=== PATIENT | male | born 1980 | race Caucasian/White ===

== ENCOUNTER 2021-08-31 08:12 | Outpatient (REF) | payer OTHER, SELFPAY | END 2021-08-31 08:13 | disposition home or self-care (01) | LOC: HO.HOSX 08:12 | PROVIDERS: Visit Provider Physician Assistant | DX: Z13.89 Encounter for screening for other disorder (principal) ==

== ENCOUNTER 2021-10-20 13:10 | Emergency (ER) | payer OTHER, SELFPAY ==
[2021-10-20 13:50] VITALS: BP 122/74; PULSE 77; RESP 18; TEMP 36.9; O2SAT 98; BMI 25.7
--- NOTE | 2021-10-20 14:12 | ED.ANIMALBIT ---
HPI - Animal Bite General Chief Complaint: Animal Bite Stated Complaint: Bite riaz, L hand swollen Time Seen by Provider: 10/20/21 14:05 Source: patient Mode of arrival: ambulatory Limitations: no limitations History of Present Illness HPI narrative: 40 yo male presents to the ER for evaluation of an infected possible spider bite on the inside of his left wrist that he notes a few days ago. He thought that he got bit by something when he was doing gardening few days ago and the area has gotten more painful, swollen and is now draining purulent material. He reports pain when he moves his wrist but is able to do so. He denies history of diabetes. He is not febrile. MD complaint: other (possible spider bite) Onset (ago): day(s) Animal: other (Possible spider bite) Description of animal: unknown animal Mechanism: bite Location - Extremities: left: hand (Palmar aspect of the left wrist) Pain description: dull and constant Severity scale (1-10): 8 Associated symptoms: erythema and discharge from wound Treatments prior to arrival: wound dressing(s) Related Data Patient tetanus UTD: Yes Previous Rx's Medication Instructions Recorded cephalexin 500 mg tablet 500 mg PO Q6H 7 days #28 tabs 10/20/21 doxycycline hyclate 100 mg tablet 100 mg PO BID #14 tabs 10/20/21 Allergies Allergy/AdvReac Type Severity Reaction Status Date / Time No Known Allergies Allergy Unverified 11/08/19 15:34 Review of Systems Review of Systems: Constitutional: No Fever, No Chills Cardiovascular: No Chest Pain, No SOB Gastrointestinal: No Nausea, No Vomiting,No abdominal Pain Genitourinary: No Dysuria, No Urinary Frequency, No Hematuria Musculoskeletal: + joint pain, No Myalgias Skin: + Skin Lesions, No rash Neuro: No Weakness, No Numbness, No Dizziness, No Headache Psych:+ Anxiety/Panic, No Depression Heme/Lymph: No Bruising, No Lymphadenopathy Endocrine: No Polyuria, No Polydipsia PMFSH Social History Social History Advance Directives: No Advance Directives Information Provided: No Physical Exam ED Vital Signs: Vital Signs - 24 hr 10/20/21 13:50 10/20/21 14:52 Temperature 98.4 F 98.4 F Pulse Rate 77 53 Respiratory Rate 18 14 Blood Pressure 122/74 124/85 Pulse Oximetry 98 100 Oxygen Delivery Method Room Air Room Air BMI result Body Mass Index 25.7 Appearance: Alert. Oriented X3. No acute distress. HEENT: normal inspection CVS: Normal heart rate and rhythm. Pulses normal. Respiratory: No respiratory distress. Skin: Skin warm and dry. Normal skin color. Normal skin turgor. No rashes. Extremities: Palmar aspect of the left wrist with a 1 cm, tender, fluctuant lesion on the ulnar side, moderate surrounding erythema and tenderness. Normal range of motion of the wrist. 2+ radial pulse. Neurovascularly intact distally. Neuro: Oriented X 3. No motor deficit. No sensory deficit. Course Course Course Narrative: 40-year-old male presents to the ER for evaluation of a possible spider bite on his left wrist few days ago. Purulence drainage and evidence of infection at this time. He is agreeable to incision and drainage. Reevaluation(s) Reevaluation #1: Patient tolerated procedure well. Purulence, foul smelling material was able to be expressed. Wound was irrigated extensively. No need for packing. He was given 1st dose of oral antibiotics. Went to go asking which pharmacy he went to for additional antibiotic treatment and he eloped from the emergency room prior to being discharged. Procedures Abscess I/D Site: hand Side (if applicable): left Local Anesthetic: lidocaine 2% Amount of anesthesia used (mL): 1 Technique: incised with blade Sent for culture/gram staining?: No Irrigation: Yes Packing used?: none Complications: pain Discharge Plan Discharge Clinical Impression: Cutaneous abscess of left wrist Patient Disposition: Elopement Prescriptions: New doxycycline hyclate 100 mg tablet 100 mg PO BID Qty: 14 0RF cephalexin 500 mg tablet 500 mg PO Q6H 7 Days Qty: 28 0RF Discharge Date/Time: 10/20/21 15:50
[2021-10-20] MEDS: Lidocaine HCl 2 % 20 ML VIAL SUBCUT (14:32)
[2021-10-20 14:52] VITALS: BP 124/85; PULSE 53; RESP 14; TEMP 36.9; O2SAT 100
[2021-10-20] MEDS: cephALEXin 500 MG CAPSULE 1000 MG PO (14:57)
[2021-10-20] MEDS: Ibuprofen 600 MG TABLET PO (14:57)
--- NOTE | 2021-10-20 15:49 | PC.NURSE ---
Patient left before discharge papers were given
== END 2021-10-20 15:50 | disposition left against medical advice (07) ==
PROVIDERS: Emergency Provider Emergency Medicine
DX: L02.414 Cutaneous abscess of left upper limb (principal); M25.532 Pain in left wrist
CPT/HCPCS: 10060; 99283; 99284

== ENCOUNTER 2022-06-04 00:52 | Emergency (ER) | payer SELFPAY ==
[2022-06-04 01:02] VITALS: BP 129/77; PULSE 118; RESP 16; TEMP 36.6; BMI 25.0
--- NOTE | 2022-06-04 01:24 | ED.SKABFB ---
HPI - Skin/Abscess/Foreign Bdy General Chief complaint: Skin/Abscess/Foreign Body Stated complaint: L arm itchiness/scabs on left arm Time Seen by Provider: 06/04/22 01:16 Source: patient Mode of arrival: ambulatory Limitations: no limitations History of Present Illness HPI narrative: Patient with history of substance abuse use IVDA cocaine and heroin complaining of rash for last few weeks getting worse for last 3 days rash is most and forearm with scab formation no history of similar rash in the past no fever or chills Related Data Previous Rx's Medication Instructions Recorded cephalexin 500 mg tablet 500 mg PO Q6H 7 days #28 tabs 10/20/21 doxycycline hyclate 100 mg tablet 100 mg PO BID #14 tabs 10/20/21 doxycycline hyclate 100 mg tablet 100 mg PO BID #20 tabs 06/04/22 mupirocin calcium 2 % topical cream 1 appl topical BID #30 grams 06/04/22 Allergies Allergy/AdvReac Type Severity Reaction Status Date / Time No Known Allergies Allergy Unverified 11/08/19 15:34 Review of Systems Review of Systems: Yes all other systems are reviewed and are negative Physical Exam Vital Signs: Vital Signs: Last Vital Signs Temp 98 F 06/04/22 01:02 Pulse 118 H 06/04/22 01:02 Resp 16 06/04/22 01:02 BP 129/77 06/04/22 01:02 O2 Del Method Room Air 06/04/22 01:02 BMI result Body Mass Index 25.0 Skin: Other: Round circular rash with scab mostly on the left forearm likely staph infection? MRSA Medical Decision Making Medical Decision Making [facility] Narrative: Patient with IVDA with rash clinically staph infection discharge patient home on doxycycline and Bactroban ointment Discharge Plan Discharge Clinical Impression: MRSA (methicillin resistant Staphylococcus aureus) infection Patient Disposition: Home, Self-Care Instructions: MRSA (Methicillin-Resistant Staphylococcus Aureus) (ED) Additional Instructions: Apply Bactroban ointment on the active lesions Take antibiotic as prescribed Prescriptions: New doxycycline hyclate 100 mg tablet 100 mg PO BID Qty: 20 0RF mupirocin calcium 2 % cream 1 appl topical BID Qty: 30 0RF No Action doxycycline hyclate 100 mg tablet 100 mg PO BID Qty: 14 0RF cephalexin 500 mg tablet 500 mg PO Q6H 7 Days Qty: 28 0RF
[2022-06-04] MEDS: Doxycycline Monohydrate 100 MG CAPSULE PO (01:37)
== END 2022-06-04 01:41 | disposition home or self-care (01) ==
PROVIDERS: Emergency Provider Internal Medicine
DX: A49.02 Methicillin resistant Staphylococcus aureus infection, unspecified site (principal); R21 Rash and other nonspecific skin eruption
CPT/HCPCS: 99282; 99283

== ENCOUNTER 2023-02-17 14:28 | Outpatient (REF) | payer MEDICAID, SELFPAY ==
[2023-02-17 16:55] LABS: TSH reflex Free T4 > 100.00 uIU/mL (0.32-4.0)
[2023-02-17 17:35] LABS: Free T4 (Free Thyroxine) < 0.42 ng/dL (0.71-1.85)
== END 2023-02-17 14:29 | disposition home or self-care (01) ==
LOC: HO.HHCL 14:28
PROVIDERS: Visit Provider General Practice
DX: E03.8 Other specified hypothyroidism (principal)
CPT/HCPCS: 36415; 84439; 84443

== ENCOUNTER 2024-04-04 13:14 | Emergency (ER) | payer MEDICAID, SELFPAY ==
[2024-04-04] VITALS (8 sets, daily range): BP systolic 96–156; BP diastolic 53–106; PULSE 38–66; RESP 12–18; TEMP 36.4–36.7; O2SAT 94–100; BMI 28.0
--- NOTE | ~2024-04-04 | CT_ITS ---
EXAMINATION: CT CERVICAL SPINE WITHOUT IV CONTRAST HISTORY: fall. TECHNIQUE: Helical CT of the cervical spine was performed per standard departmental protocol. Coronal and sagittal reformatted images were also evaluated. One or more of the following techniques was used for dose reduction: Automated exposure control, adjustment of the mA and/or kV according to patient size, use of iterative reconstruction technique. DLP: 472.93 mGy-cm COMPARISON: There are no prior studies for comparison. FINDINGS: The examination is nondiagnostic due to marked patient motion. CT/CT cervical spine wo IV con IMPRESSION: Nondiagnostic examination due to marked patient motion. If there remains clinical concern for fracture of the cervical spine, a repeat examination could be performed after appropriate sedation. Electronically signed by: Rudy Lebron MD 04/04/2024 03:25 PM [facility]
--- NOTE | ~2024-04-04 | CT_ITS ---
EXAMINATION: CT HEAD WITHOUT IV CONTRAST HISTORY: fall. TECHNIQUE: Unenhanced helical CT of the head was performed per standard departmental protocol. Coronal and sagittal reformats of the head were also evaluated. One or more of the following techniques was used for dose reduction: Automated exposure control, adjustment of the mA and/or kV according to patient size, use of iterative reconstruction technique. DLP: 1698 mGy-cm COMPARISON: There are no prior studies for comparison. FINDINGS: BRAIN: The brain parenchyma is unremarkable. There is normal prasad/white differentiation. The ventricular system is normal in size and configuration. There is no mass effect or midline shift. No intra- or extra-axial fluid collections are identified. SINUSES: The visualized paranasal sinuses are clear. There are probable postsurgical changes involving the right mastoid air cells. ORBITS: The visualized orbits are unremarkable. BONES/SOFT TISSUES: The extracranial soft tissues are unremarkable. The calvarium is intact. No suspicious lytic or sclerotic lesions. CT/CT head/brain wo IV con IMPRESSION: No acute intracranial abnormality. Electronically signed by: Rudy Lebron MD 04/04/2024 03:23 PM [facility]
--- NOTE | ~2024-04-04 | XR_ITS ---
EXAMINATION: XR CHEST 1 VIEW HISTORY: dyspnea COMPARISON: There are no prior studies for comparison. FINDINGS: A single AP portable view of the chest performed at 2:50 PM is submitted. There are low lung volumes. The lungs are grossly clear. There is no pleural effusion, pneumothorax, or pulmonary vascular congestion. The heart is normal in size. The bones are intact. XR/XR chest 1V IMPRESSION: Low lung volumes. The lungs are grossly clear. Electronically signed by: Rudy Lebron MD 04/04/2024 03:15 PM [facility]
--- NOTE | 2024-04-04 13:26 | ECG_ITS ---
Test Reason : jacquelin Blood Pressure : */* mmHG Vent. Rate : 50 BPM Atrial Rate : 50 BPM P-R Int : 152 ms QRS Dur : 88 ms QT Int : 450 ms P-R-T Axes : 68 16 -7 degrees QTcB Int : 410 ms Sinus bradycardia Nonspecific T wave abnormality Abnormal ECG No previous ECGs available Referred By: Sara Ibanez Electronically Signed By: NOE KATZ MD
[2024-04-04 13:30] LABS: Glucose, Whole Blood 130 mg/dL (60-115)
--- NOTE | 2024-04-04 13:55 | ED.AMS ---
HPI - Altered Mental Status General Chief Complaint: Overdose Stated Complaint: heroin OD, responsive post 14mg narcan, 15LPM NRB Time Seen by Provider: 04/04/24 13:22 Source: EMS Mode of arrival: EMS Limitations: altered mental status History of Present Illness ED Provider: A[place]IN HPI narrative: 43 yo male with PMH of substance abuse who was found unresponsive on ground - bystanders called 911. He was given 12mg intranasal narcan and then 2mg IV total 14mg. EMS noted his HR was in 30s so they gave 1mg atropine en route unable to get BP. On arrival to ED he is sleepy but states he is cold and then rolls over and tries to sleep. He was hypoxic and placed on NRB. He is intermittently awake then fallins asleep. We have seen him before for abscess due to IVDA. No known downtime he has been titrated down by me to 5L oxymask holding narcan unless he worsens clinically MD complaint: altered mental status Onset (ago): unknown Timing confirmed by: other Severity: severe Context: drug abuse Associated symptoms: denies other symptoms Treatments prior to arrival: IV fluid, oxygen and other (14mg total narcan) Related Data Previous Rx's ?Medication ?Instructions ?Recorded cephalexin 500 mg tablet 500 mg PO Q6H 7 days #28 tabs 10/20/21 doxycycline hyclate 100 mg tablet 100 mg PO BID #14 tabs 10/20/21 doxycycline hyclate 100 mg tablet 100 mg PO BID #20 tabs 06/04/22 mupirocin calcium 2 % topical cream 1 appl topical BID #30 grams 06/04/22 Allergies Allergy/AdvReac Type Severity Reaction Status Date / Time No Known Allergies Allergy Verified 04/04/24 13:25 Review of Systems Review of Systems: ROS unable to be obtained due to altered mental status [facility] Past Medical History Attestation statement: The following information was validated with the patient. Source: old records reviewed Medical History Active substance abuse Social History Social History (Updated 04/04/24 @ 13:55 by Sara Ibanez DO) Patient Tobacco Use Status: Tobacco use Unknown Advance Directives: No Advance Directives Information Provided: No Do you have a plan to hurt others: No Plan Physical Exam ED Vital Signs: Vital Signs - 24 hr 04/04/24 13:20 04/04/24 15:27 04/04/24 15:28 Temperature Pulse Rate 51 66 48 L Respiratory Rate 18 15 Blood Pressure 156/106 H 121/91 H Pulse Oximetry 100 94 100 Oxygen Delivery Method Non-Rebreather Mask Room Air 04/04/24 15:46 04/04/24 17:07 Temperature 97.5 F Pulse Rate 45 L 46 L Respiratory Rate 15 14 Blood Pressure 123/84 116/77 Pulse Oximetry 97 96 Oxygen Delivery Method Room Air Room Air BMI result Body Mass Index 28.0 Appearance: Somnolent wakes to painful stimuli, says he is cold, pulls away from blood draw mild acute distress. Eyes: Pupils pinpoint ENT: Pharynx normal. no trauma Neck: Normal inspection. Neck supple. CVS: Normal heart rate and rhythm. Pulses normal. Respiratory: mild respiratory distress - hypoxic on NRB with poor insp effort. Breath sounds very diminished throughout Abdomen: Soft and non-tender. Skin: Skin warm and dry. pale skin color. Normal skin turgor. Extremities: No lower extremity edema. no obvious trauma noted track gaona Neuro: withdraws from painful stimuli verbalizes he is cold but otherwise not participating Course Course Course Narrative: more awake still confused following commands, improving on oxy mask Reevaluation(s) Reevaluation #1: will monitor and reassess - off O2 but still under the influence. Reevaluation #2: he denies any neck pain doubt neck trauma Medications Administered Discontinued Medications Generic Name Dose Route Start Last Admin Trade Name Freq PRN Reason Stop Dose Admin Naloxone HCl 0.2 mg 04/04/24 13:32 04/04/24 16:49 Naloxone Hcl 0.4 Mg/Ml Vial IVPUSH 04/04/24 13:33 Not Given STAT STA Ondansetron HCl 4 mg 04/04/24 13:32 04/04/24 13:58 Ondansetron Hcl 4 Mg/2 Ml Vial IVPUSH 04/04/24 13:33 4 mg ONCE ONE Administration Medical Decision Making Medical Decision Making [facility] Narrative: 43 yo male with PMH of opiate abuse here with c/o possible overdose found down at this time he was also given atropine though unclear what BPs were at that time - will place on tele, obtain labs - CPK, lytes, CT head/cspine and obtain CXR for pulm edema/aspiration. Will monitor closely for need for narcan Differential Diagnosis Differential Diagnoses: The differential diagnosis associated with the presentation includes overdose, neg pressure pulm edema, rhabdo, head trauma Admission/Observation Consideration of admission/observation: Escalation of care including admission/observation considered will monitor until more awake signed out to Dr. Cohen Lab Data MDM Lab Attestation statement: I reviewed the patient's lab results. 04/04/24 13:57 04/04/24 13:57 Labs: Lab Results 04/04/24 04/04/24 04/04/24 Range/Units 13:28 13:57 13:58 WBC 9.1 (4.8-10.8) X10*3/uL RBC 3.87 L (4.60-5.80) X10*6/uL Hgb 11.9 L (14.0-18.0) g/dl Hct 33.4 L (42.0-52.0) % MCV 86.3 (80.0-98.0) fL MCH 30.7 (27.0-33.0) pg MCHC 35.6 (31.0-36.0) g/dl RDW 12.4 (11.0-16.0) % Plt Count 267 (160-400) X10*3/uL MPV 8.8 L (9.4-12.4) fL Immature Gran % (Auto) 0.4 (0.0-0.4) % Neut % (Auto) 90.3 H (45-73) % Lymph % (Auto) 5.0 L (20-40) % [place] % (Auto) 3.1 (2-11) % Eos % (Auto) 0.9 (0-4) % Baso % (Auto) 0.3 (0-2) % Lymph # (Auto) 0.5 L (1.2-4.9) X10*3/uL [place] # (Auto) 0.3 (0.1-1.2) X10*3/uL Eos # (Auto) 0.1 (0.0-0.4) X10*3/uL Baso # (Auto) 0.0 (0.0-0.2) X10*3/uL Abs Immat Gran (auto) 0.04 H (0.00-0.03) X10*3/uL Absolute Neuts (auto) 8.2 (2.0-8.3) x10*3/uL Absolute Nucleated RBC 0.000 (0.0-0.012) X10*3/uL Nucleated RBC % (auto) 0.0 (0.0-0.2) /100WBC Smear Tech's Comments VERIFIED VBG pH (7.32-7.43) VBG pCO2 mmHg VBG pO2 mmHg VBG HCO3 (22-26) mmol/L VBG O2 Saturation % VBG Base Excess mmol/L Sodium 137 (135-145) mmol/L Potassium 3.6 (3.3-5.1) mmol/L Chloride 102 (96-108) mmol/L Carbon Dioxide 30 H (22-29) mmol/L Anion Gap 9 L (12-20) BUN 21 H (9-16) mg/dL Creatinine 1.00 (0.5-1.4) mg/dL Estim Creat Clear Calc 96.1 Estimated GFR > 60 POC Glucose 130 H (60-115) mg/dL Random Glucose 134 H (60-115) mg/dL Lactic Acid 0.9 (0.5-2.0) mmol/L Calcium 8.8 (8.4-10.2) mg/dL Magnesium 2.0 (1.6-2.6) mg/dL Total Bilirubin 0.7 (0.0-1.0) mg/dL Direct Bilirubin 0.2 (0.0-0.5) mg/dL AST 46 H (5-37) U/L ALT 54 H (0-40) U/L Alkaline Phosphatase 93 (39-117) U/L Total Creatine Kinase 493 H (38-174) U/L Troponin I High Sens < 2.7 (<3.5-35.0) ng/L B-Natriuretic Peptide 22 (<100) pg/mL Total Protein 7.7 (6.5-8.0) g/dL Albumin 3.9 (3.5-5.0) g/dL Influenza Type A (PCR) NEGATIVE (Negative) Influenza Type B (PCR) NEGATIVE (Negative) RSV RNA Qual (PCR) NEGATIVE (Negative) SARS-CoV-2 RNA (RT-PCR) NEGATIVE (Negative) 04/04/24 Range/Units 14:17 WBC (4.8-10.8) X10*3/uL RBC (4.60-5.80) X10*6/uL Hgb (14.0-18.0) g/dl Hct (42.0-52.0) % MCV (80.0-98.0) fL MCH (27.0-33.0) pg MCHC (31.0-36.0) g/dl RDW (11.0-16.0) % Plt Count (160-400) X10*3/uL MPV (9.4-12.4) fL Immature Gran % (Auto) (0.0-0.4) % Neut % (Auto) (45-73) % Lymph % (Auto) (20-40) % [place] % (Auto) (2-11) % Eos % (Auto) (0-4) % Baso % (Auto) (0-2) % Lymph # (Auto) (1.2-4.9) X10*3/uL [place] # (Auto) (0.1-1.2) X10*3/uL Eos # (Auto) (0.0-0.4) X10*3/uL Baso # (Auto) (0.0-0.2) X10*3/uL Abs Immat Gran (auto) (0.00-0.03) X10*3/uL Absolute Neuts (auto) (2.0-8.3) x10*3/uL Absolute Nucleated RBC (0.0-0.012) X10*3/uL Nucleated RBC % (auto) (0.0-0.2) /100WBC Smear Tech's Comments VBG pH 7.42 (7.32-7.43) VBG pCO2 58 mmHg VBG pO2 22 mmHg VBG HCO3 38 H (22-26) mmol/L VBG O2 Saturation < 30.0 % VBG Base Excess 11.7 mmol/L Sodium (135-145) mmol/L Potassium (3.3-5.1) mmol/L Chloride (96-108) mmol/L Carbon Dioxide (22-29) mmol/L Anion Gap (12-20) BUN (9-16) mg/dL Creatinine (0.5-1.4) mg/dL Estim Creat Clear Calc Estimated GFR POC Glucose (60-115) mg/dL Random Glucose (60-115) mg/dL Lactic Acid (0.5-2.0) mmol/L Calcium (8.4-10.2) mg/dL Magnesium (1.6-2.6) mg/dL Total Bilirubin (0.0-1.0) mg/dL Direct Bilirubin (0.0-0.5) mg/dL AST (5-37) U/L ALT (0-40) U/L Alkaline Phosphatase (39-117) U/L Total Creatine Kinase (38-174) U/L Troponin I High Sens (<3.5-35.0) ng/L B-Natriuretic Peptide (<100) pg/mL Total Protein (6.5-8.0) g/dL Albumin (3.5-5.0) g/dL Influenza Type A (PCR) (Negative) Influenza Type B (PCR) (Negative) RSV RNA Qual (PCR) (Negative) SARS-CoV-2 RNA (RT-PCR) (Negative) Independent Interpretation I performed an independent interpretation of an: EKG and CT Scan (no ICH) Interpretation: Rate: 50 Rhythm: sinus bradycardia [place]: normal Normal P waves. Normal AMELIE. Normal QRS complex. ST T wave : flat t waves lateral and inf leads no XIAO qTC: 410 prior studies: no prior The study has been interpreted contemporaneously by me. . Radiology Impression Discussion of test interpretation with radiology: I have reviewed the radiologist's reading. Independent Historian Clinical information obtained from an independent historian. History obtained from or confirmed by: EMS External Record Review External record reviewed: Outpatient record Discharge Plan Discharge Clinical Impression: Drug overdose Patient Disposition: Still a Patient Instructions: Adult Overdose (ED) Additional Instructions: Overdose You were seen in our Emergency Department for an overdose today. You received narcan in order to reverse the effects of overdose. Narcan only lasts about 45 min to 1 hour in the system. You may have been given narcan to take home with you today, please keep it near you if you are going to use again, so others can use it if needed.? The number one risk for fatal overdose is using alone? [facility] is a 24/7 hotline where you can be on the phone with someone while you use, and they can call for help if they suspect an overdose: [phone] Things to look out for when you leave include severe vomiting or diarrhea, headaches, muscle cramps, fever, coughing, chest pain, or if you feel so short of breath you cannot walk to the bathroom. Please seek care and return any time for worsening symptoms.? You may have been provided with safer injection?items, please take time to take care of YOU and your health. Use new supplies whenever possible to lessen the chances of infections and other illnesses.? If you need more supplies, please go [facility],? [address] [place] [address] OR you can call or text to coordinate delivery of safer supplies. If you decide you want to stop or cut down on how much you?re using, please call the numbers on the list provided to you or you can come to our outpatient Addiction Treatment office [facility] (M-F 9am-5p) [address] [place] [address], [facility] [address], [place]. [phone] Prescriptions: No Action doxycycline hyclate 100 mg tablet 100 mg PO BID Qty: 14 0RF cephalexin 500 mg tablet 500 mg PO Q6H 7 Days Qty: 28 0RF doxycycline hyclate 100 mg tablet 100 mg PO BID Qty: 20 0RF mupirocin calcium 2 % cream 1 appl topical BID Qty: 30 0RF Print Language: Bur[place]ian
[2024-04-04] MEDS: ondansetron HCL 4 MG/2 ML VIAL IVPUSH (13:58)
[2024-04-04 14:04] LABS: Basophils Percent Auto 0.3 % (0-2); Eosinophils Absolute Auto 0.1 X10*3/uL (0.0-0.4); Eosinophils Percent Auto 0.9 % (0-4); Hematocrit 33.4 % (42.0-52.0); Hemoglobin 11.9 g/dl (14.0-18.0); Imm Gran Abs Auto 0.04 X10*3/uL (0.00-0.03); Imm Gran Pct Auto 0.4 % (0.0-0.4); Lymphocytes Absolute Auto 0.5 X10*3/uL (1.2-4.9); MANUAL DIFF FLAG SCAN; Mean Corpuscular HGB Conc 35.6 g/dl (31.0-36.0); Mean Corpuscular Hemoglobin 30.7 pg (27.0-33.0); Mean Corpuscular Volume 86.3 fL (80.0-98.0); Mean Platelet Volume 8.8 fL (9.4-12.4); Monocytes Absolute Auto 0.3 X10*3/uL (0.1-1.2); Monocytes Percent Auto 3.1 % (2-11); Neutrophils Absolute Auto 8.2 x10*3/uL (2.0-8.3); Neutrophils Percent Auto 90.3 % (45-73); Platelet Count 267 X10*3/uL (160-400); Red Blood Count 3.87 X10*6/uL (4.60-5.80); Red Cell Distribution Width 12.4 % (11.0-16.0); SCAN SMEAR FLAG 1; White Blood Count 9.1 X10*3/uL (4.8-10.8)
[2024-04-04 14:19] LABS: Lactic Acid 0.9 mmol/L (0.5-2.0)
[2024-04-04 14:20] LABS: Alanine Aminotransferase 54 U/L (0-40); Albumin Level 3.9 g/dL (3.5-5.0); Alkaline Phosphatase 93 U/L (39-117); Anion Gap 9 (12-20); Aspartate Amino Transferase 46 U/L (5-37); Bilirubin Direct 0.2 mg/dL (0.0-0.5); Bilirubin Total 0.7 mg/dL (0.0-1.0); Blood Urea Nitrogen 21 mg/dL (9-16); Calcium 8.8 mg/dL (8.4-10.2); Carbon Dioxide 30 mmol/L (22-29); Chloride 102 mmol/L (96-108); Creatinine Clr Calc Pharmacy 96.1; Estimated Glomerular Filt Rate > 60; Glucose Random 134 mg/dL (60-115); Potassium 3.6 mmol/L (3.3-5.1); Sodium 137 mmol/L (135-145); Total Protein 7.7 g/dL (6.5-8.0)
[2024-04-04 14:20] LABS: Venous Blood Gas Refer to POC result
--- NOTE | 2024-04-04 14:22 | PC.NURSE ---
Patient able to follow commands, communicate that he would like to drink water. Spoke with Dr. Ibanez about holding off on Narcan admin until necessary. Pt currently in CT.
[2024-04-04 14:24] LABS: B Type Natriuretic Peptide 22 pg/mL (<100)
[2024-04-04 14:27] LABS: VBG Base Excess 11.7 mmol/L; VBG HCO3 38 mmol/L (22-26); VBG O2 % Saturation < 30.0 %; VBG pCO2 58 mmHg; VBG pH 7.42 (7.32-7.43); VBG pO2 22 mmHg
[2024-04-04 14:32] LABS: Troponin-I High Sensitivity < 2.7 ng/L (<3.5-35.0)
[2024-04-04 14:33] LABS: SLIDE REVIEW VERIFIED
--- NOTE | 2024-04-04 14:48 | PC.NURSE ---
Patient found standing at edge of stretcher naked yelling to someone whom he thinks is his sister - person is not his sister. Patient helped back to bed, resting quietly on stretcher at this time. Satting 100% on RA, provider aware.
[2024-04-04 14:52] LABS: Influenza A PCR NEGATIVE (Negative); Influenza B PCR NEGATIVE (Negative); Resp Syncy Virus RNA Qual PCR NEGATIVE (Negative); SARS COV2 PCR INHOUSE NEGATIVE (Negative)
--- NOTE | 2024-04-04 15:55 | PC.NURSE ---
Security called to go through patient's belongings, needles found and taken. Belongings remain in bag at bedside.
--- OUTSIDE RECORDS SUMMARY | 2024-04-04 16:24 | XMS_ITS | Clinical Summary ---
Author Organization [employer] Address [address] [facility] [address] [place] [address] Care Team Providers Care Vp Corporate Development Name Role Phone Dexter Seth MD Primary Care Provider [phone] Allergies No known active allergies Medications * This document contains information received from the source organization and may not represent a complete record from that organization. cloNIDine (Catapres) 0.1 MG tabletIndications: Other insomnia Take 2 tablets (0.2 mg) by mouth 2 times daily. 180 tablet 3 4 025 Active hydrOXYzine HCl (Atarax) 25 MG tabletIndications: Anxiety Take 1 tablet (25 mg) by mouth 4 times daily. 120 tablet 4 Active levothyroxine (Synthroid) 112 MCG tabletIndications: Other specified hypothyroidism Take 1 tablet (112 mcg) by mouth before breakfast. 90 tablet 4 Active pantoprazole (Protonix) 40 MG EC tabletIndications: Gastroesophageal reflux disease with esophagitis without hemorrhage Take 1 tablet (40 mg) by mouth before breakfast. Do not crush, chew, or split. 90 tablet 4 Active budesonide-formote rol (Symbicort) 160-4.5 MCG/ACT inhalerIndications :Moderate persistent asthma without complication Two puffs BID and up to two more puffs per day as needed for asthma. Rinse mouth with water after use to reduce aftertaste and incidence of candidiasis. Do not swallow. 2 each 4 Active Active Problems Problem Noted Date Diagnosed Date Moderate persistent asthma without complication 09/20/2023 Other constipation 03/16/2023 Mixed anxiety and depressive disorder 02/25/2023 Assessment & Plan (03/03/2023 2:08 PM EST): During [facility]BH Consult Broderick presenting with depressed mood, loss of interests/pleasure , changes in sleep difficulty falling asleep, change in appetite or weight reduce appetite, trouble concentrating, thoughts of worthlessness or guilt, fatigue/loss of energy, hopelessness, worthlessness , difficulty concentrating, excessive worry/anxiety, difficulty controlling worry, restless/keyed up/On edge, easily fatigued, and irritability, and Fear of abandonment, Pattern of unstable and intense interpersonal relationships, Identity disturbance, Impulsivity, Affective instability, Feelings of emptiness, and Disassociation; for a period of 18+ mo, for all symptoms in the context of financial concern, housing, and recent incarceration. Broderick endorsed depression, anxiety, auditory and visual hallucinations. Reported having a therapist and psychiatrist while being incarcerated. He's released from senior care now with no services in place; currently staying with his mom. Broderick is engaged with Methadone program with [facility]. Lack of resources are exacerbating symptoms. PLAN: (check all that apply) New/Additional Services needed On-site non-integrated services Off-site services for BH, Behavioral Health Integration Plan Internal Follow up with [facility], External OP therapy referral , Patient Self Plan Patient to utilize skills provided in intervention , [facility], Comply with medication , Patient to engage in OP therapy , and Patient to reach out to [facility] as needed. Patient is willing to do walk-in for sooner appointments. Provided information for [facility]-intake coordination. Housing problems 02/25/2023 Assessment & Plan (03/03/2023 2:08 PM EST): During IBH Consult Broderick presenting with depressed mood, loss of interests/pleasure , changes in sleep difficulty falling asleep, change in appetite or weight reduce appetite, trouble concentrating, thoughts of worthlessness or guilt, fatigue/loss of energy, hopelessness, worthlessness , difficulty concentrating, excessive worry/anxiety, difficulty controlling worry, restless/keyed up/On edge, easily fatigued, and irritability, and Fear of abandonment, Pattern of unstable and intense interpersonal relationships, Identity disturbance, Impulsivity, Affective instability, Feelings of emptiness, and Disassociation; for a period of 18+ mo, for all symptoms in the context of financial concern, housing, and recent incarceration. Broderick endorsed depression, anxiety, auditory and visual hallucinations. Reported having a therapist and psychiatrist while being incarcerated. He's released from senior care now with no services in place; currently staying with his mom. Broderick is engaged with Methadone program with [facility]. Lack of resources are exacerbating symptoms. PLAN: (check all that apply) New/Additional Services needed On-site non-integrated services Off-site services for , Behavioral Health Integration Plan Internal Follow up with [facility], External OP BH therapy referral , Patient Self Plan Patient to utilize skills provided in intervention , [facility] as needed, Comply with medication , Patient to engage in OP BH therapy , and Patient to reach out to [facility] as needed. Patient is willing to do walk-in for sooner appointments. Provided information for [facility]-intake coordination. Bipolar 1 disorder 02/25/2023 Assessment & Plan (03/03/2023 2:08 PM EST): During IBH Consult Broderick presenting with depressed mood, loss of interests/pleasure , changes in sleep difficulty falling asleep, change in appetite or weight reduce appetite, trouble concentrating, thoughts of worthlessness or guilt, fatigue/loss of energy, hopelessness, worthlessness , difficulty concentrating, excessive worry/anxiety, difficulty controlling worry, restless/keyed up/On edge, easily fatigued, and irritability, and Fear of abandonment, Pattern of unstable and intense interpersonal relationships, Identity disturbance, Impulsivity, Affective instability, Feelings of emptiness, and Disassociation; for a period of 18+ mo, for all symptoms in the context of financial concern, housing, and recent incarceration. Broderick endorsed depression, anxiety, auditory and visual hallucinations. Reported having a therapist and psychiatrist while being incarcerated. He's released from senior care now with no services in place; currently staying with his mom. Broderick is engaged with Methadone program with [facility]. Lack of resources are exacerbating symptoms. PLAN: (check all that apply) New/Additional Services needed On-site non-integrated services Off-site services for , Behavioral Health Integration Plan Internal Follow up with [facility], External OP therapy referral , Patient Self Plan Patient to utilize skills provided in intervention , Patient to reach out to [facility] team as needed, Comply with medication , Patient to engage in OP therapy , and Patient to reach out to [facility] as needed. Patient is willing to do walk-in for sooner appointments. Provided information for [facility]-intake coordination. Other specified hypothyroidism 02/18/2023 Overview (03/16/2023): Lab Results Component Value Date TSH >100.00 (H) 02/17/2023 Advised on Assessment & Plan (02/18/2023 8:38 AM EST): Impressed upon him the need to start treatment, TSH is very high Given letter to use for potential EDTA regarding his condition Umbilical hernia without obstruction and without gangrene 02/18/2023 Assessment & Plan (02/18/2023 8:41 AM EST): Will refer to general surgery If it changes color to dark or he cannot reduce it, to ER Opioid use disorder in remission 02/18/2023 Assessment & Plan (02/18/2023 8:34 AM EST): Sees [facility] for methadone Current dose is 60mg daily Hepatitis C antibody test positive 02/18/2023 Assessment & Plan (02/18/2023 8:37 AM EST): Is aware of this diagnosis and planning to get treatment at [facility] Family History Medical History Relation Name Comments Hyperlipidemia Father Coronary artery disease Mother Relation Name Status Comments Father Alive Mother Alive Social History Tobacco Use Types Packs/Day Years Used Date Smoking Tobacco: Every Day Cigarettes Passive Smoke Exposure: Past Smokeless Tobacco: Never Tobacco Cessation:Ready to Q uit: Not Asked; Counseling Given: Not Answered Alcohol Use Standard Drinks/Week Comments Not Currently 0 (1 standard drink = 0.6 oz pur e alcohol) Alcohol Answer Date Recorded How often do you have a drink containing alcohol ? 0 09/20/2023 How many drinks containing a lcohol do you have on a typical day when you are drinking? 0 09/20/2023 How often do you have six or more drinks on one occasion? 0 09/20/2023 Depression Answer Date Recorded Patient Health Questionnaire-9 Score 17 03/03/2023 Patient Health Questionnaire-9 Score 17 03/03/2023 Last PHQ-9: Questionnaire Data Not on file 0 03/03/2023 Housing Stability Answer Date Recorded What is your housing situation today? I have erickson farias 09/20/[address] you li ve. Do you have problems with any of the following? None of the above 09/20/2023 Food Insecurity Answer Date Recorded Within the past 12 months, y ou worried that your food would run out before you got money to buy more: Never True 09/20/2023 Within the past 12 months,th e food you bought just didn't last and you didn't have enough money to get more: Never True Transportation Answer Date Recorded In the past 12 months, has l ack of transportation kept you from medical appts, meetings, work or from getting things needed for daily living? No 09/20/2023 Intimate Partner Violence Answer Date R ecorded Within the last year, have y ou been afraid of your partner or ex-partner? 2 09/20/2023 Within the last year, have y ou been humiliated or emotionally abused in other ways by your partner or ex-partner? 2 Within the last year, have y ou been kicked, hit, slapped, or otherwise physically hurt by your partner or ex-partner? 2 09/20/2023 Within the last year, have y ou been raped or forced to have any kind of sexual activity by your partner or ex-partner? 2 09/20/2023 Utilities Answer Date Recorded In the past 12 months, has t he [employer], [employer], oil or water company threatened to shut off services in your home? No 09/20/2023 Depression Answer Date Recorded Patient Health Questionnaire-2 Score 6 03/03/2023 Sex and Gender Information Value Date Recorded Sex Assigned at Male 12/21/2021 10:14 AM EDT Legal Sex Male 10:14 AM EDT Gender Identity Male 12/21/2021 10:14 AM EDT Sexual Orientation Straight 12/21/2021 10 :14 AM EDT Last Filed Vital Signs Vital Sign Reading Time Taken Comments Blood Pressure 115/75 09/20/2023 1:46 PM EDT Pulse 89 09/20/2023 1:46 PM EDT Temperature 36.2 ??C (97.1 ??F) 09/20/2023 1:46 PM ED T Respiratory Rate 20 02/25/2023 12:50 PM EST Oxygen Saturation 97% 09/20/2023 1:46 PM EDT Inhaled Oxygen Concentration - - Weight 82.6 kg (182 lb) 09/20/2023 1:46 PM EDT Height 165.1 cm (5' 5 ) 09/02/2023 11:03 AM EDT Body Mass Index 30.29 09/02/2023 11:03 AM EDT Plan of Treatment Health Maintenance Due Date Last Done Comments SDOH Screening 1980 Family Planning (PISQ) 11/20/1994 DTaP/Tdap/Td Vaccines (1 - Tdap) 11/20/1998 Hepatitis A Vaccines (1 of 2 - Risk 2-dose series) 11/20/1998 Hepatitis B Vaccines (1 of 3 - 19+ 3-dose series) 11/20/1998 Pneumococcal Vaccine: Pediatrics (0 to 5 Years) and At-Risk Patients (6 to 49) Years) (1 of 2 - PCV) 11/20/1998 Depression Monitoring (PHQ-9) 09/01/2023, 03/03/2023 COVID-19 Vaccine (1 - 2023-2 5 season) 2023 Influenza Vaccine (#1) 2023 Depression Screening 03/03/2024 03/03/2023, 03/03/2023 Alcohol/Substance Use Screening 09/19/2024 09/20/2023 Tobacco Screening 09/19/2024 09/20/2023 Lipid Panel 07/08/2026 07/08/2021 Zoster Vaccines (1 of 2) 11/20/2029 RSV Patients and Patients Aged 60 years or older (1 - 1-dose 75+ series) 11/20/2054 HIV Screening Completed 07/08/2021 Hepatitis C Screening Completed 07/08/2021 HIB Vaccines Aged Out No longer eligi ble based on patient's age to complete this topic HPV Vaccines Aged Out No longer eligi ble based on patient's age to complete this topic IPV Vaccines Aged Out No longer eligi ble based on patient's age to complete this topic Meningococcal Vaccine Aged Out No sukhwinder kamala eligible based on patient's age to complete this topic RSV under 20 months Aged Out No longe r eligible based on patient's age to complete this topic Rotavirus Vaccines Aged Out No longer eligible based on patient's age to complete this topic Procedures Procedure Name Priority Date/Time Associated Diagnosis Comments ZZZ HISTORICAL HEPATITIS C AB W/REFL TO HCV RNA, QN, PCR Routine 07/08/2021 1:25 PM EDT HIV 1/2 ANTIGEN/ANTIBODY, FOURTH GENERATION W/RFL Routine 07/08/2021 1:25 PM EDT LIPID PANEL, STANDARD Routine 07/08/2021 1:25 PM EDT from Last 3 Months or Most Recently Relevant to Health Maintenance Results * (ABNORMAL) HEPATITIS C AB W/REFL TO HCV RNA, QN, PCR (07/08/2021 1:25 PM EDT) HEPATITIS C ANTIBODY REACTIVE( A) NON-REACT SHANNAN [facility] INDEX >11.00(H) <1.00 [facility] Comment: ?? Based on this result, the sample will be tested for HCV RNA by a Nucleic Acid Amplification Test (NAAT) to determine if the patient has a current active infection. ?? 07/08/2021 1:25 PM EDT us Nerissa Dao ANP HISTORICAL/NON ORDERABLE LABS Fi nal Result [facility] [address] * HIV 1/2 ANTIGEN/ANTIBODY,FOURTH GENERATION W/RFL (07/08/2021 1:25 PM EDT) HIV-1/2 ANTIGEN AND ANTIBODIES, 4TH GENERATION W/ REFLEX NON-REACT SHANNAN NON-REACT SHANNAN [facility] Comment: HIV-1 antigen and HIV-1/HIV-2 antibodies were not detected. There is no laboratory evidence of HIV infection. ?? PLEASE NOTE: This information has been disclosed to you from records whose confidentiality may be protected by state law. ??If your state requires such protection, then the state law prohibits you from making any further disclosure of the information without the specific written consent of the person to whom it pertains, or as otherwise permitted by law. A general authorization for the release of medical or other information is NOT sufficient for this purpose. ? For additional information please refer to http://EDMdesigner.[employer]/faq/FLA959 (This link is being provided for informational/ educational purposes only.) ? The performance of this assay has not been clinically validated in patients less than 2 years old. ?? 07/08/2021 1:25 PM EDT us [facility] LAB BLOOD ORDERABLES Final Resul t [facility] [address] * (ABNORMAL) LIPID PANEL, STANDARD (07/08/2021 1:25 PM EDT) Chol/HDLC Ratio 3.8 <5.0 (calc) [facility] Cholesterol, Total 175 <200 mg/dL [facility] HDL Cholesterol 46 > OR = 40 mg/dL [facility] LDL Cholesterol 110(H) mg/dL (calc) [facility] Comment: Reference range: <100 ?? Desirable range <100 mg/dL for primary prevention; ?? <70 mg/dL for patients with CHD or diabetic patients ?? with > or = 2 CHD risk factors. ?? LDL-C is now calculated using the Yanna ?? calculation, which is a validated novel method providing ?? better accuracy than the Friedewald equation in the ?? estimation of LDL-C. ?? Clint DARBY et al. DANUTA. 2013;310(19): 3838-0586 ?? (http://EDMdesigner.[employer]/faq/LFW911) Non-HDL Cholesterol 129 <130 mg/dL (calc) [facility] Comment: For patients with diabetes plus 1 major ASCVD risk ?? factor, treating to a non-HDL-C goal of <100 mg/dL ?? (LDL-C of <70 mg/dL) is considered a therapeutic ?? option. Triglycerides 101 <150 mg/dL [facility] 07/08/2021 1:25 PM EDT [facility] LAB BLOOD ORDERABLES Final Resul t [facility] [address] [place] [address], from Last 3 Months or Most Recently Relevant to Health [place] [address] [employer] [place] [address] [facility] Care Teams Vp Corporate Development Relationship Specialty Start Date End Date Dexter Seth MD PCP - General Internal Medicine 08/29/23
--- OUTSIDE RECORDS SUMMARY | 2024-04-04 16:24 | XMS_ITS | Encounter Summary ---
Author Organization [employer] Address [address] [facility] [address] [place] [address] Care Team Providers Care Hydroelectric Station Operator Name Role Phone Manohar Carey PA-C Primary Care Provider [phone] Dexter Seth MD Primary Care Provider [phone] Encounter Details Date Type Department Care Team (Latest Contact Info) Description 09/18/2020 Abstract [facility] CONVERSIONS Dental, Provider, DDS Social History Tobacco Use Types Packs/Day Years Used Date Smoking Tobacco: Never Assessed Sex and Gender Information Value Date Recorded Sex Assigned at Male 12/21/2021 10:14 AM EDT Legal Sex Male 10:14 AM EDT Gender Identity Male 12/21/2021 10:14 AM EDT Sexual Orientation Straight 12/21/2021 10 :14 AM EDT documented as of this encounter Plan of Treatment Not on file documented as of this encounter Visit Diagnoses Not on filedocumented in this encounter Care Teams Hydroelectric Station Operator Relationship Specialty Start Date End Date Manohar Carey PA-C [address] [place] [address] PCP - General Family Medicine 08/22/23 08/28/23 Dexter Seth MD [address] [place] [address] PCP - General Internal Medicine 08/29/23 documented as of this encounter
--- NOTE | 2024-04-04 17:30 | PC.NURSE ---
Patient continues to be sleeping on stretcher, VSS, HR 40's.
--- NOTE | 2024-04-04 19:58 | MHC.EDTECH ---
This tech took over care of patient at 1900,rounded and introduced self to patient, vitals taken, belongings list completed,and belongings locked in the [place] TOP shelf,call gaytan in reach
[2024-04-05 00:49] VITALS: BP 93/51; PULSE 43; RESP 16; TEMP 36.8; O2SAT 98
--- NOTE | 2024-04-05 00:56 | PC.NURSE ---
provider Tor made aware of hr 43 while pt is awake and sitting up in bed. pt given a ambulation test and his gait is steady, pt is alert oriented x4 no s/s of distress noted. provider is aware and ok for discharge,
[2024-04-05 01:01] VITALS: PULSE 61; O2SAT 98
[2024-04-05] MEDS: Naloxone HCl Nasal TAKE HOME 4 MG SPRAY 8 MG NOSTRILALT (01:04)
[2024-04-05 01:06] VITALS: BP 92/47; PULSE 61; RESP 16; TEMP 36.8; O2SAT 98
--- NOTE | 2024-04-05 01:41 | MHC.EDTECH ---
T/W gave patient a harm reduction kit upon discharge
== END 2024-04-05 01:08 | disposition home or self-care (01) ==
PROVIDERS: Emergency Medicine; Emergency Provider Emergency Medicine
DX: T40.1X1A Poisoning by heroin, accidental (unintentional), initial encounter (principal); Y92.9 Unspecified place or not applicable; R41.82 Altered mental status, unspecified; R09.02 Hypoxemia; R00.1 Bradycardia, unspecified; R51.9 Headache, unspecified; F11.10 Opioid abuse, uncomplicated; M54.2 Cervicalgia; Z79.899 Other long term (current) drug therapy; Z03.818 Encounter for observation for suspected exposure to other biological agents ruled out
CPT/HCPCS: 0241U; 36415; 70450; 71045; 72125; 80048; 80076; 82550; 82803; 82947; 83605; 83735; 83880; 84484; 85025; 87040; 93005; 96374; 99284; 99285; J2310; J2405

== ENCOUNTER → 2024-04-04 13:26 | Outpatient (BNV) | payer MEDICAID, SELFPAY | PROVIDERS: Emergency Provider Emergency Medicine; Visit Provider Internal Medicine Cardiovascular Disease | DX: R00.1 Bradycardia, unspecified (principal) | CPT/HCPCS: 93010 ==

== ENCOUNTER → 2024-04-04 13:29 | Outpatient (BNV) | payer SELFPAY | PROVIDERS: Emergency Provider Emergency Medicine; Visit Provider Radiology Diagnostic Radiology | DX: R06.00 Dyspnea, unspecified (principal); S19.9XXA Unspecified injury of neck, initial encounter; S09.90XA Unspecified injury of head, initial encounter | CPT/HCPCS: 70450; 71045; 72125 ==